=== PATIENT | female | born 1955 | race American Indian/Alaskan Native ===

== ENCOUNTER 2019-01-25 09:20 | Inpatient (IN) ==
[2019-01-20 18:16] LABS: Appearance,Urine CLEAR; Bacteria,Urine 0 /hpf (0); Bilirubin,Urine NEG (NEG); Color,Urine YELLOW; Glucose,Urine (UA) NEGATIVE (NEG); Leukocyte Esterase,Urine NEG /uL (NEG); Mucus,Urine FEW /hpf (0); Protein,Urine NEG (NEG); Specific Gravity,Urine 1.021 (1.000-1.035); Urine Blood 0.03 mg/dL (<0.03); Urine RBC 1 /hpf (0-1); Urine Squamous Epithelial Cell < 1 /hpf (0-4); Urine WBC < 1 /hpf (0-4)
[2019-01-20 20:30] LABS: Estimated Average Glucose(eAG) 108 mg/dL; Hemoglobin A1C 5.4 % HGB (4.0-6.0)
[2019-02-08] MEDS ORDERED: PREGABALIN 75 MG CAPSULE PO SCH (07:00)
[2019-02-08] MEDS ORDERED: oxyCODONE 10 MG TAB.ER.12H PO SCH (07:00)
[2019-02-08] MEDS ORDERED: ceFAZolin 1 GM VIAL IV SCH (07:00)
[2019-02-08] MEDS ORDERED: 0.9 % SODIUM CHLORIDE 9 ML, KETOROLAC 30 MG, ROPIVACAINE HCL/PF 49.5 ML, EPINEPHrine 0.... IJ SCH (07:00)
[2019-02-08] MEDS ORDERED: LIDOCAINE HCL/PF 100 MG/5 ML SYRINGE IV ONE (10:40)
[2019-02-08] MEDS ORDERED: TRANEXAMIC ACID 1,000 MG/10 ML VIAL IV ONE ×2 (10:40→12:19)
[2019-02-08] MEDS ORDERED: MIDAZOLAM 5 MG/5 ML VIAL IV ONE (10:40)
[2019-02-08] MEDS ORDERED: ePHEDrine 50 MG/ML AMPUL IV ONE (10:40)
[2019-02-08] MEDS ORDERED: DEXAMETHASONE 4 MG/ML VIAL IV ONE (10:40)
[2019-02-08] MEDS ORDERED: PHENYLEPHRINE 10 MG/ML VIAL IV ONE (10:40)
[2019-02-08] MEDS ORDERED: PROPOFOL 200 MG/20 ML VIAL IV ONE (10:40)
[2019-02-08] MEDS ORDERED: ROPIVACAINE HCL/PF 20 ML VIAL IJ ONE (10:40)
[2019-02-08] MEDS ORDERED: ONDANSETRON 4 MG/2 ML VIAL IV ONE (10:40)
[2019-02-08] MEDS ORDERED: diphenhydrAMINE 50 MG/ML VIAL IV PRN (11:51)
[2019-02-08] MEDS ORDERED: LACTATED RINGERS 250 ML IV PRN (11:51)
[2019-02-08] MEDS ORDERED: MEPERIDINE 25 MG/ML SYRINGE IV PRN (11:51)
[2019-02-08] MEDS ORDERED: IPRATROPIUM/ALBUTEROL 3 ML AMPUL.NEB NEB PRN (11:51)
[2019-02-08] MEDS ORDERED: NALOXONE HCL 0.4 MG/ML VIAL IV PRN (11:51)
[2019-02-08] MEDS ORDERED: PROMETHAZINE 25 MG/ML VIAL IV PRN (11:51)
[2019-02-08] MEDS ORDERED: FLUMAZENIL 0.1 MG/ML ML IV PRN (11:51)
[2019-02-08] MEDS ORDERED: METHOCARBAMOL 1,000 MG/10 ML VIAL IV PRN (11:51)
[2019-02-08] MEDS ORDERED: ONDANSETRON 4 MG/2 ML VIAL IV PRN ×2 (11:51→12:19)
[2019-02-08] MEDS ORDERED: BENZOCAINE/MENTHOL 1 LOZENGE PO PRN ×2 (11:51→12:19)
[2019-02-08] MEDS ORDERED: fentaNYL 100 MCG/2 ML VIAL IV PRN (11:51)
[2019-02-08] MEDS ORDERED: ACETAMINOPHEN 650 MG/65 ML BOTTLE IV ONE (12:00)
[2019-02-08] MEDS ORDERED: LACTATED RINGERS 1,000 ML IV SCH (12:00)
[2019-02-08] MEDS ORDERED: POLYETHYLENE GLYCOL 3350 17 GM PACKET PO PRN (12:19)
[2019-02-08] MEDS ORDERED: MAGNESIUM HYDROXIDE 30 ML ORAL.SUSP PO PRN (12:19)
[2019-02-08] MEDS ORDERED: BISACODYL 10 MG SUPP.RECT PR PRN (12:19)
[2019-02-08] MEDS ORDERED: FLEETS ADULT ENEMA PR PRN (12:19)
--- NOTE | 2019-02-08 12:19 | Brief Operative Note ---
Date of procedure: 02/08/19 Pre-op diagnosis: Left knee arthritis Post-op diagnosis: same Procedure: Left robotic assisted total knee arthroplasty Grafts/Implants: Yes (Java Triathlon 2 CR femur, 2 tibia, 9mm insert, 33 patella) Anesthesia: spinal, GLMA Findings: arthritis Complications: none Surgeon: Timothy Walter Apartment Rental Agent: Ricco Quan Estimated blood loss (cc): 30 Specimens Removed/Pathology: none sent Condition: stable Disposition: PACU
[2019-02-08] MEDS ORDERED: ALBUTEROL SULFATE 1 PUFF INHALER INH PRN (12:23)
[2019-02-08] MEDS ORDERED: CLOBETASOL PROPIONATE TP SCH (12:30)
--- NOTE | 2019-02-08 13:08 | XRay Report ---
CLINICAL INFORMATION: Post-op total knee COMPARISON: None. FINDINGS: Total knee prosthesis is anatomically aligned. No osseous abnormality. Periarticular gas is soft tissue swelling seen as expected. IMPRESSION: Normal Interpreted and Authenticated by: Alessio Gomez 02/08/19
--- NOTE | 2019-02-08 14:18 | Operative Note ---
DATE OF OPERATION: 02/08/2019 PREOPERATIVE DIAGNOSIS: Left knee degenerative arthrosis. POSTOPERATIVE DIAGNOSIS: Left knee degenerative arthrosis. PROCEDURE PERFORMED: Left robotic-assisted total knee arthroplasty placing a size 2 cruciate retaining femoral component, size 2 tibial baseplate, a 9 mm X3 tibial insert with a 33 mm patellar button. SURGEON: Timothy Walter MD BAIL BONDSMAN: Anastacio Quan PA-C ANESTHESIA: Spinal plus general. DRAINS: None. SPECIMENS: Bone cuts, which were discarded. BLOOD LOSS: Less than 30 mL POSTOPERATIVE CONDITION: Stable. INDICATIONS FOR SURGERY: This is a 63-year-old female who has chronic pain issues and rheumatoid arthritis who ended up having a knee arthroscopy done by me a while back. She did not do well from that surgery and we noted significant degenerative changes at that time. She did not respond well to conservative treatment including injections so eventually our only other option was a total knee arthroplasty. FINDINGS AT SURGERY: She did have full-thickness cartilage loss off of the medial femoral condyle. Post implantation showed good joint stability, limb alignment and patellar tracking. PROCEDURE IN DETAIL: The patient had been seen preoperatively and informed consent was obtained after discussion of risks and benefits of surgery. Risks including, but not limited to, bleeding; infection, possibly requiring implant removal and prolonged IV antibiotics; injury to nerves, blood vessels other surrounding structures; anesthetic risks; incomplete or no resolution of her pain, this being a very high probability given her high dose chronic narcotics and chronic pain; DVT, swelling, stiffness, pain, possibility of needing further revision surgery, wound complications, particularly given her rheumatologic medications and prednisone use. She understood and wished to proceed. Correct operative site was marked in preoperative holding and patient was taken to the operating room. General anesthesia was induced after she received spinal in preop. The left lower extremity was carefully prepped and draped in normal sterile fashion. A timeout was performed verifying patient name, operative site, and plan. Esmarch was used to exsanguinate the extremity and tourniquet was inflated to 250 mmHg. Ioban was used to cover all skin surfaces and a standard midline incision was made with a scalpel through skin and subcutaneous tissue. IrriSept was irrigated and then a medial parapatellar arthrotomy made and a significant joint effusion was aspirated. We did a subperiosteal exposure of the anterior medial tibia and then resected the anterior horns of the medial and lateral meniscus as well as transected the ACL and removed the retropatellar fat pad. We then placed a femoral and tibial checkpoint and then two stab incisions were made over the tibia and two over the femur and bicortical pins were placed and the arrays were connected. We did our hip center of rotation check and a green probe was used to identify the medial and lateral malleoli and then double checked our checkpoints. Blue probe was then used to do our mapping. She did not have significant osteophytes, so we went ahead then to our ligament balancing, checking flexion and extension. It did take some adjustment to try and get 17 mm. We ended up downsizing from a 2 and adding 3 degrees of varus on the tibia and ended up with 17 mm gaps medial and lateral in extension and 17 medial in flexion with 18 lateral in flexion. This also required 6-1/2 degrees of external rotation to the posterior condylar axis. Our patellar tracking was only slightly lateral to her knik trochlear groove. We went ahead and then used the robotic arm to make our bone cuts. The tibia was positioned. She had a very small lateral tibial plateau so we positioned this so there was no overhang laterally and externally rotated as bone coverage would allow. This was pinned into place and boss reamer and keel punch used to prepare. We then placed a keeled tibial trial. The femur was elevated. There were no significant posterior osteophytes se went ahead and placed our femoral component. The size 2 fit flush medial and lateral verifying it was the best size as a 3 would have been too large. We pinned this into place and then drilled our peg holes. We then trialed the 9 insert trial. The knee was taken into extension and had about 8 degrees short of full extension. We then prepared the patella freehand technique. Initial pre-resection thickness was 22, post-resection was 12. We sized this to a 33, which was medialized maximally. Holes were drilled. This basically covered the whole patella so no lateral facetectomy was needed. We then checked our patellar tracking. It was good with no tilt or subluxation. We then removed the trial implants. Definitive implants were opened. We irrigated the joint with IrriSept. After waiting a minute we pulse lavaged copiously with saline and the CO2 gun was used to clean and dry the cancellous bone surfaces. Antibiotic Palacos had been mixed. We then cemented the tibia followed by the femur. A 9 insert trial was placed and the knee was taken into extension and then the patellar button was cemented. While cement was hardening, we removed checkpoints. We went ahead and injected pain cocktail into the pericapsular and subcutaneous tissues and then filled the joint with IrriSept. The knee was held absolutely still in full extension until cement had fully hardened. We then irrigated with saline and flexed the knee up. We removed the insert trial, injected pain cocktail in the posterior capsule. We opened a 9 insert. We irrigated the tray with IrriSept and then impacted the insert, carefully verifying it was fully seated. We then filled the joint with IrriSept, after a minute pulse lavaged with saline and then the knee was taken into 45 degrees of flexion. We placed a single lyplie-mr-xzqnk #2 FiberWire at the superior medial apex of the patella and then interrupted alprzr-er-juvacy around the remainder of the patella and running #1 Vicryl was used for patellar tendon and quad tendon. We irrigated one more time with IrriSept, after a minute pulse lavaged with saline and then 2-0 Monocryl was used for subq and jose for skin. Xeroform and a sterile dressing were applied. Tourniquet was released. The patient was awakened, extubated, and transferred to recovery in stable condition. [email or web address] Job ID: [id number] Doc ID: [id number] Timothy Walter MD
[2019-02-08] MEDS: oxyCODONE HCL 5 MG TABLET PO PRN ×3 (15:19→23:24)
[2019-02-08] MEDS: morphine 30 MG TAB.SR.12H PO SCH ×2 (15:33→20:41)
[2019-02-08] MEDS: 0.9 % SODIUM CHLORIDE 10 ML SYRINGE IV SCH ×2 (16:26→21:50)
[2019-02-08] MEDS: 0.9 % SODIUM CHLORIDE 1,000 ML IV SCH ×2 (16:26→23:42)
[2019-02-08] MEDS: PANTOPRAZOLE 40 MG TABLET PO SCH (17:17)
[2019-02-08] MEDS: HYDROmorphone 2 MG/ML VIAL IV PRN ×2 (17:45→20:40)
[2019-02-08] MEDS: ceFAZolin 1 GM VIAL IV SCH (18:55)
[2019-02-08] MEDS: DOCUSATE SODIUM 100 MG CAPSULE PO SCH (20:40)
[2019-02-08] MEDS: FAMOTIDINE 20 MG TABLET PO SCH (20:41)
[2019-02-08] MEDS: SENNOSIDES 1 TABLET PO SCH (20:41)
[2019-02-08] MEDS: ASPIRIN 81 MG TAB.CHEW PO SCH (20:41)
[2019-02-08] MEDS: NORTRIPTYLINE 25 MG CAPSULE PO SCH (20:42)
[2019-02-09] MEDS: HYDROmorphone 2 MG/ML VIAL IV PRN ×8 (01:33→23:47)
[2019-02-09] MEDS: ceFAZolin 1 GM VIAL IV SCH (01:34)
[2019-02-09] MEDS: oxyCODONE HCL 5 MG TABLET PO PRN ×5 (04:01→20:43)
[2019-02-09] MEDS: 0.9 % SODIUM CHLORIDE 10 ML SYRINGE IV SCH ×5 (04:02→20:47)
[2019-02-09] MEDS: PANTOPRAZOLE 40 MG TABLET PO SCH ×2 (07:05→16:32)
[2019-02-09] MEDS: POTASSIUM CHLORIDE 10 MEQ TABLET PO SCH (08:22)
[2019-02-09] MEDS: predniSONE 5 MG TABLET PO SCH (08:22)
[2019-02-09] MEDS: FUROSEMIDE 20 MG TABLET PO SCH (08:52)
[2019-02-09] MEDS: DOCUSATE SODIUM 100 MG CAPSULE PO SCH ×2 (08:52→20:43)
[2019-02-09] MEDS: ASPIRIN 81 MG TAB.CHEW PO SCH ×2 (08:52→20:43)
[2019-02-09] MEDS: FAMOTIDINE 20 MG TABLET PO SCH ×2 (08:52→20:43)
[2019-02-09] MEDS: morphine 30 MG TAB.SR.12H PO SCH ×3 (08:53→20:43)
--- NOTE | 2019-02-09 09:06 | Discharge Summary ---
Providers - Providers Patient information: Note initiated : 02/09/19 at 9:04 am Service Date, if different from initiated Date: [] Patient: Tiffany Hurtado 63 y/o F admitted on 02/08/19 for Left Robotic Total Knee Arthroplasty. Chief Complaint: [] Discharge date: 02/09/19 Hospitalization Hospital course: patient was admitted for a total knee arthroplasty. She was admitted on the day of the procedure. after the procedure she was transferred for further pain medication and Iv antibiotics and therapy. patient spent one on the floor prior to discharge. patient was discharged to home with appropriate pain medication. she will take aspirin for DVT prophylaxis. She'll follow up with orthopedics in 2 weeks. She will attend outpatient physical therapy. Discharge diagnosis: L knee OA Exam - Exam Weight bearing status: as tolerated Ortho Discharge - TKA - Patient Instructions Diet: Regular Diet Activity: activity as tolerated Total Knee Protocol: For Total Knee: Start ROM BIJAN with stationary bike or rocking chair. Work on gaining full extension of knee. Posterior dislocation precautions provided. Hip abductor strengthening and gait training instructions provided. Apply Cryocuff as instructed. Dressing Care: May shower in 2 days - Follow Up Plan Follow Up Appointments: Ricco Quan PA-C [Physician Bullet Lubricant Mixer] - 02/23/19 11:20 am Disposition: Home, Self-Care Prognosis: Good Rehab Potential: Good Overall status at discharge: patient is progressing back to baseline - Orders For Discharge Prescriptions: Aspirin/Calcium Carbonate/Mag [Buffered Aspirin 325 mg Tb] 325 mg PO BID #30 tab oxyCODONE HCL [Roxicodone] 1 - 2 tab PO Q4HP PRN #75 tab PRN Reason: Pain Level 3-6 Additional Discharge Orders: Physical Therapy at Discharge - General Location: None Selected Walker Location: None Selected Pending Studies Resuscitation Status Full Code Diet Regular Diet Start WedFeb 08 1221 Aspirin (Aspirin) 81 mg PO BID [facility] Last Admin: 02/09/19 08:52 Dose: 81 mg Documented by: [email or web address] Admin: 02/08/19 20:41 Dose: 81 mg Documented by: KAMARI Docusate Sodium (Colace) 100 mg PO BID [facility] Last Admin: 02/09/19 08:52 Dose: 100 mg Documented by: [email or web address] Admin: 02/08/19 20:40 Dose: 100 mg Documented by: KAMARI Famotidine (Pepcid) 20 mg PO BID [facility] Last Admin: 02/09/19 08:52 Dose: 20 mg Documented by: Admin: 02/08/19 20:41 Dose: 20 mg Documented by: KAMARI Furosemide (Lasix) 20 mg PO DAILY [facility] Last Admin: 02/09/19 08:52 Dose: 20 mg Documented by: MACEY Hydromorphone HCl (Dilaudid) 0 mg IV Q2HP PRN PRN Reason: PAIN LEVEL > 6 Last Admin: 02/09/19 06:59 Dose: 0.5 mg Documented by: Admin: 02/09/19 01:33 Dose: 1 mg Documented by: Admin: 02/08/19 20:40 Dose: 1 mg Documented by: Admin: 02/08/19 17:45 Dose: 0.5 mg Documented by: [place] Morphine Sulfate (Ms Contin) 60 mg PO TID [facility] Last Admin: 02/09/19 08:53 Dose: 60 mg Documented by: Admin: 02/08/19 20:41 Dose: 60 mg Documented by: Admin: 02/08/19 15:33 Dose: 60 mg Documented by: RUI Nortriptyline HCl (Pamelor) 75 mg PO [facility] Last Admin: 02/08/19 20:42 Dose: Not Given Documented by: KAMARI Oxycodone HCl (Roxicodone) 0 mg PO Q4HP PRN PRN Reason: PAIN LEVEL 3-6 Last Admin: 02/09/19 08:23 Dose: 10 mg Documented by: Admin: 02/09/19 04:01 Dose: 10 mg Documented by: Admin: 02/08/19 23:24 Dose: 10 mg Documented by: Admin: 02/08/19 19:39 Dose: 10 mg Documented by: Admin: 02/08/19 15:19 Dose: 10 mg Documented by: RUI Pantoprazole Sodium (Protonix) 40 mg PO BIDAC [facility] Last Admin: 02/09/19 07:05 Dose: 40 mg Documented by: Admin: 02/08/19 17:17 Dose: 40 mg Documented by: RUI Potassium Chloride (Kdur) 10 meq PO [facility] Last Admin: 02/09/19 08:22 Dose: 10 meq Documented by: [email or web address] [facility]) [facility] Last Admin: 02/09/19 08:22 Dose: 5 mg Documented by: [email or web address] Senna (Senokot) 2 tab PO HS [facility] Last Admin: 02/08/19 20:41 Dose: 2 tab Documented by: KAMARI Sodium Chloride (Saline Flush) 10 ml IV Q8 [facility] Last Admin: 02/09/19 07:04 Dose: 10 ml Documented by: Admin: 02/09/19 04:02 Dose: 10 ml Documented by: Admin: 02/08/19 21:50 Dose: Not Given Documented by: Admin: 02/08/19 16:26 Dose: 10 ml Documented by: [place] Shift Summary 02/09/19 03:45 Shift Summary by Yue Richard A&Ox4. Medicated for pain with 1mg IV Dilaudid x 2, 10mg PO Roxicodone x2. Also received scheduled pain medication. Able to rest between cares tonight. Dressing to L knee is C/D/I. Up to bathroom with FWW and SBA, doing well. No nausea. IV to L FA is SL. Initialized on 02/09/19 03:45 - END OF NOTE
[2019-02-09] MEDS: NORTRIPTYLINE 25 MG CAPSULE PO SCH ×2 (20:43→20:47)
[2019-02-09] MEDS: SENNOSIDES 1 TABLET PO SCH (20:43)
[2019-02-10] MEDS: oxyCODONE HCL 5 MG TABLET PO PRN ×4 (01:45→09:21)
[2019-02-10] MEDS: HYDROmorphone 2 MG/ML VIAL IV PRN ×2 (02:16→04:33)
[2019-02-10] MEDS: 0.9 % SODIUM CHLORIDE 10 ML SYRINGE IV SCH (04:33)
[2019-02-10] MEDS: PANTOPRAZOLE 40 MG TABLET PO SCH (07:13)
[2019-02-10] MEDS: FUROSEMIDE 20 MG TABLET PO SCH (07:13)
[2019-02-10] MEDS: ASPIRIN 81 MG TAB.CHEW PO SCH (07:13)
[2019-02-10] MEDS: DOCUSATE SODIUM 100 MG CAPSULE PO SCH (07:13)
[2019-02-10] MEDS: POTASSIUM CHLORIDE 10 MEQ TABLET PO SCH (07:13)
[2019-02-10] MEDS: morphine 30 MG TAB.SR.12H PO SCH (07:14)
[2019-02-10] MEDS: predniSONE 5 MG TABLET PO SCH (07:14)
[2019-02-10] MEDS: FAMOTIDINE 20 MG TABLET PO SCH (07:14)
[2019-02-10] MEDS ORDERED: POTASSIUM CHLORIDE 20 MEQ TABLET PO ONE (07:41)
[2019-02-10] MEDS ORDERED: KETOROLAC 30 MG/ML VIAL IV ONE (07:55)
--- NOTE | 2019-02-10 07:56 | Orthopedic Progress Note ---
Orthopedics - Auxillary Note - Subjective Patient Information: Note initiated : 02/10/19 at 7:53 am Service Date, if different from initiated Date: [] Patient: Tiffany Hurtado 63 y/o F admitted on 02/08/19 for Left Robotic Total Knee Arthroplasty. Chief Complaint: Moderate to severe pain bandages c/d/i nvi-distal Vital Signs Temp Pulse Resp BP Pulse Ox 02/10/19 03:38 99.8 F H 80 20 117/66 98 02/09/19 23:16 99.6 F H 84 20 110/49 97 02/09/19 19:33 99.5 F H 80 18 117/60 97 02/09/19 16:28 100.0 F H 94 H 14 142/68 98 02/09/19 12:00 98.3 F 87 14 143/75 95 02/09/19 08:22 98.1 F 65 14 101/57 97 Intake and Output 02/09/19 02/10/19 02/10/19 21:59 05:59 13:59 Intake Total 340 1100 Balance 340 1100 Intake: Oral 340 1100 Other: Meal Dinner Percent of Meal Consumed 75% Urine Color Bright Yellow Urine Odor Normal # Voids 1 1 1 Weight 112 lb 8 oz s/p L TKA-stable -Mobilize with PT -Increased to Percocet 10/325, d/c oxy 5mg -One time dose of Torodol IV 30mg hypokalemic -one time dose of K+ -f/u PCP
[2019-02-14] MEDS ORDERED: ERGOCALCIFEROL (VITAMIN D2) 50,000 UNIT CAPSULE PO SCH (09:00)
[2019-02-22] MEDS ORDERED: KETOCONAZOLE TOPICAL SCH (09:00)
== END 2019-02-10 11:22 | disposition home or self-care (01) | DRG 470 ==
LOC: MEDSUR 02-08 08:49
PROVIDERS: ADMIT Orthopaedic Surgery; ATTEND Orthopaedic Surgery